=== PATIENT | male | born 1960 | race Hispanic/Latino ===

== ENCOUNTER 2017-05-15 18:51 | Emergency (ER) | payer MEDICARE ==
[~2017-05-15] VITALS: Ht 165.1 cm; Wt 65.4 kg
[~2017-05-15 18:51] MED LIST: ATROPINE SUL1 % OP; BL ADULT ASA81 MG OR; CARVEDILOL25 MG PO; CLONIDINE0.2 MG OR; GENTAMICIN0.3 % OP; HUMULI1 SC; HYDRALAZINE25 MG PO; HYDROCHLOROTH12.5 MG OR; LISINOPRIL20 MG OR; LISINOPRIL20 MG PO; LORTAB5 PO; METOPROL TAR25 MG PO; METOPROLOL50 MG OR; NIFEDIAC CC60 MG OR; NIFEDIPINE60 MG PO; NORVASC5 MG OR; NOVOLIN 70/30 SC; NOVOLOG MIX100 U/ML SC; PHOSLO667 MG PO; PRED FORTE1 % OP; RENO PO; RENVELA800 MG PO; SIMVASTATIN40 MG PO; SODIUM BICARBI650 MG OR; TAM75CAP OR; ZEMPLAR2 MCG OR; ZOCOR40 MG OR
[2017-05-15] MEDS ORDERED: DIOVAN320 MG PO (19:12)
[2017-05-15] MEDS ORDERED: RENVELA800 MG PO (19:12)
[2017-05-15] MEDS ORDERED: NIFEDIPINE60 MG PO (19:12)
[2017-05-15] MEDS ORDERED: SENSIPAR30 MG PO (19:14)
[2017-05-15] MEDS ORDERED: CLONIDINE0.1 MG PO (19:14)
[2017-05-15] MEDS ORDERED: METOPROL TAR25 MG PO (19:14)
[2017-05-15 19:25] LABS: HEMATOCRIT 33.3 % (39.0-50.0); HEMOGLOBIN 11.2 g/dl (14.0-18.0); IMMATURE GRANULOCYTES 0.4 % (0.0-1.0); MEAN CELL VOLUME 92.2 fL CALC (80.0-100.0); MEAN CORPUSCULAR HGB CONC 33.6 g/L CALC (32.0-36.0); NEUT# 9.72 thou/uL (1.82-7.42); RED BLOOD COUNT 3.61 mill/uL (4.70-6.10); RED CELL DISTRI WIDTH 11.9 % (11.5-15.5)
[2017-05-15 19:37] LABS: ALBUMIN 4.2 g/dL (3.2-5.0); BILIRUBIN, TOTAL 0.4 mg/dL (0.0-1.4); CALCIUM 9.3 mg/dL (8.4-10.2)
[2017-05-15 19:49] LABS: CREATININE 14.6 mg/dL (0.7-1.3); POTASSIUM 5.5 mmol/l (3.5-5.1)
[2017-05-15] MEDS ORDERED: FLEXERIL PO (21:12)
[2017-05-15] MEDS ORDERED: ULTRAM50 M1 PO (21:12)
[2017-05-15 22:35] VITALS: BP 177/79
== END 2017-05-15 22:16 | disposition home or self-care (01) ==
LOC: ED 18:51
PROVIDERS: Emergency Medicine
DX: S16.1XXA Strain of muscle, fascia and tendon at neck level, initial encounter (principal); M62.838 Other muscle spasm; R94.31 Abnormal electrocardiogram [ECG] [EKG]; M54.2 Cervicalgia; I12.0 Hypertensive chronic kidney disease with stage 5 chronic kidney disease or end stage renal disease; N18.6 End stage renal disease; Z99.2 Dependence on renal dialysis

== ENCOUNTER 2018-06-11 08:25 | Emergency (ER) | payer MEDICARE ==
[~2018-06-11] VITALS: Ht 165.1 cm; Wt 65.5 kg
[~2018-06-11 08:25] MED LIST changes: +CLONIDINE0.1 MG PO; +DIOVAN320 MG PO; +FLEXERIL PO; +SENSIPAR30 MG PO; +ULTRAM50 M1 PO
[2018-06-11 08:58] LABS: HEMATOCRIT 30.9 % (39.0-50.0); HEMOGLOBIN 9.8 g/dl (14.0-18.0); MEAN CELL VOLUME 97.2 fL CALC (80.0-100.0); MEAN CORPUSCULAR HGB 30.8 pG CALC (26.0-32.0); MEAN CORPUSCULAR HGB CONC 31.7 g/L CALC (32.0-36.0); NEUT# 6.38 thou/uL (1.82-7.42); RED BLOOD COUNT 3.18 mill/uL (4.70-6.10); RED CELL DISTRI WIDTH 13.6 % (11.5-15.5)
[2018-06-11] MEDS ORDERED: CARVEDILOL25 MG PO (09:03)
[2018-06-11] MEDS ORDERED: ATORVASTATIN CA40 MG PO (09:05)
[2018-06-11] MEDS ORDERED: ASPIRIN 81 LOW81 MG PO (09:07)
[2018-06-11] MEDS ORDERED: CLOPIDOGREL75 MG PO (09:09)
[2018-06-11 09:22] LABS: CREATININE 14.6 mg/dL (0.7-1.3); POTASSIUM 5.2 mmol/l (3.5-5.1)
[2018-06-11 09:29] VITALS: BP 144/68
== END 2018-06-11 09:29 | disposition short-term general hospital (02) ==
LOC: ED 08:25
PROVIDERS: Family Medicine
DX: R07.9 Chest pain, unspecified (principal); R94.31 Abnormal electrocardiogram [ECG] [EKG]; E11.22 Type 2 diabetes mellitus with diabetic chronic kidney disease; I12.0 Hypertensive chronic kidney disease with stage 5 chronic kidney disease or end stage renal disease; N18.6 End stage renal disease; Z99.2 Dependence on renal dialysis; Z95.5 Presence of coronary angioplasty implant and graft

== ENCOUNTER 2019-01-14 09:28 | Emergency (ER) | payer MEDICARE ==
[~2019-01-14] VITALS: Ht 165.1 cm; Wt 65.5 kg
[~2019-01-14 09:28] MED LIST changes: +ASPIRIN 81 LOW81 MG PO; +ATORVASTATIN CA40 MG PO; +CLOPIDOGREL75 MG PO
[2019-01-14] MEDS ORDERED: NIFEDIPINE ER90 MG PO (10:21)
[2019-01-14] MEDS ORDERED: MONTELUKAST SOD10 MG PO (10:23)
[2019-01-14] MEDS ORDERED: NEURONTIN300 MG PO (10:23)
[2019-01-14] MEDS ORDERED: CLONIDINE HCL0.2 MG PO (10:24)
[2019-01-14] MEDS ORDERED: LISINOPRIL40 MG PO (10:24)
[2019-01-14] MEDS ORDERED: BAYER ASPIRIN E81 MG PO (10:25)
[2019-01-14] MEDS ORDERED: MOTRIN400 MG PO (11:08)
[2019-01-14] MEDS ORDERED: MUPIROCIN2 % EX (11:13)
[2019-01-14 11:25] VITALS: BP 143/63
== END 2019-01-14 11:25 | disposition home or self-care (01) ==
LOC: ED 09:28
DX: S80.02XA Contusion of left knee, initial encounter (principal); E11.9 Type 2 diabetes mellitus without complications; I10 Essential (primary) hypertension; F17.210 Nicotine dependence, cigarettes, uncomplicated; W01.0XXA Fall on same level from slipping, tripping and stumbling without subsequent striking against object, initial encounter; Y92.009 Unspecified place in unspecified non-institutional (private) residence as the place of occurrence of the external cause

== ENCOUNTER 2019-01-17 01:33 | Emergency (ER) | payer MEDICARE ==
[~2019-01-17] VITALS: Ht 165.1 cm; Wt 65.4 kg
[~2019-01-17 01:33] MED LIST changes: +BAYER ASPIRIN E81 MG PO; +CLONIDINE HCL0.2 MG PO; +LISINOPRIL40 MG PO; +MONTELUKAST SOD10 MG PO; +MOTRIN400 MG PO; +MUPIROCIN2 % EX; +NEURONTIN300 MG PO; +NIFEDIPINE ER90 MG PO
[2019-01-17 02:17] LABS: HEMATOCRIT 30.1 % (39.0-50.0); HEMOGLOBIN 9.3 g/dl (14.0-18.0); IMMATURE GRANULOCYTES 0.4 % (0.0-5.0); MEAN CELL VOLUME 93.5 fL CALC (80.0-100.0); MEAN CORPUSCULAR HGB 28.9 pG CALC (26.0-32.0); MEAN CORPUSCULAR HGB CONC 30.9 g/L CALC (32.0-36.0); NEUT# 8.41 thou/uL (1.82-7.42); RED BLOOD COUNT 3.22 mill/uL (4.70-6.10); RED CELL DISTRI WIDTH 15.4 % (11.5-15.5)
[2019-01-17 02:56] LABS: ALBUMIN 4.6 g/dL (3.2-5.0); BILIRUBIN, TOTAL 0.6 mg/dL (0.0-1.4); TOTAL PROTEIN 8.4 g/dL (6.3-8.2)
[2019-01-17 03:23] LABS: CREATININE 12.5 mg/dL (0.7-1.3)
[2019-01-17 05:30] VITALS: BP 166/74
== END 2019-01-17 05:45 ==
LOC: ED 01:33
PROVIDERS: Emergency Medicine
DX: I12.0 Hypertensive chronic kidney disease with stage 5 chronic kidney disease or end stage renal disease (principal); J18.9 Pneumonia, unspecified organism; E11.22 Type 2 diabetes mellitus with diabetic chronic kidney disease; N18.6 End stage renal disease; F17.210 Nicotine dependence, cigarettes, uncomplicated; Z99.2 Dependence on renal dialysis

== ENCOUNTER 2021-07-15 16:47 | Emergency (ER) | payer MEDICARE ==
[~2021-07-15] VITALS: Ht 165.1 cm; Wt 65.0 kg
[2021-07-15 18:29] LABS: HEMOGLOBIN 10.9 g/dl (14.0-18.0); IMMATURE GRANULOCYTES 0.1 % (0.0-5.0); MEAN CORPUSCULAR HGB 32.1 pG CALC (26.0-32.0); MEAN CORPUSCULAR HGB CONC 32.1 g/dL CAL (32.0-36.0); NEUT# 7.34 thou/uL (1.82-7.42); RED BLOOD COUNT 3.4 mill/uL (4.70-6.10); RED CELL DISTRI WIDTH 12.8 % (11.5-15.5)
[2021-07-15 18:34] LABS: ALBUMIN 4.1 g/dL (3.2-5.0); BILIRUBIN, TOTAL 0.5 mg/dL (0.0-1.4); TOTAL PROTEIN 8.2 g/dL (6.3-8.2)
[2021-07-15 18:36] LABS: CREATININE 5.9 mg/dL (0.7-1.3)
== END 2021-07-15 22:27 | disposition home or self-care (01) ==
LOC: ED 16:47
PROVIDERS: Emergency Medicine
DX: R07.9 Chest pain, unspecified (principal); I10 Essential (primary) hypertension; E11.9 Type 2 diabetes mellitus without complications; I25.10 Atherosclerotic heart disease of native coronary artery without angina pectoris; E78.5 Hyperlipidemia, unspecified; F17.200 Nicotine dependence, unspecified, uncomplicated; Z95.5 Presence of coronary angioplasty implant and graft

== ENCOUNTER 2022-03-28 23:58 | Emergency (ER) | payer MEDICARE ==
[~2022-03-28] VITALS: Ht 165.1 cm; Wt 55.0 kg
[2022-03-29] VITALS (7 sets, daily range): BP systolic 145–154; BP diastolic 49–59
[2022-03-29 00:29] LABS: HEMATOCRIT 30.6 % (39.0-50.0); HEMOGLOBIN 9.6 g/dl (14.0-18.0); IMMATURE GRANULOCYTES 0.1 % (0.0-5.0); MEAN CELL VOLUME 101.3 fL CALC (80.0-100.0); MEAN CORPUSCULAR HGB 31.8 pG CALC (26.0-32.0); MEAN CORPUSCULAR HGB CONC 31.4 g/dL CAL (32.0-36.0); NEUT# 7.23 thou/uL (1.82-7.42); RED BLOOD COUNT 3.02 mill/uL (4.70-6.10); RED CELL DISTRI WIDTH 13.1 % (11.5-15.5)
[2022-03-29 00:48] LABS: BILIRUBIN, TOTAL 0.4 mg/dL (0.0-1.4)
[2022-03-29 01:02] LABS: POTASSIUM 5.3 mmol/l (3.5-5.1)
== END 2022-03-29 02:42 ==
LOC: ED 23:58
PROVIDERS: Family Medicine
DX: I12.0 Hypertensive chronic kidney disease with stage 5 chronic kidney disease or end stage renal disease (principal); E11.22 Type 2 diabetes mellitus with diabetic chronic kidney disease; N18.6 End stage renal disease; E87.5 Hyperkalemia; F17.200 Nicotine dependence, unspecified, uncomplicated; Z99.2 Dependence on renal dialysis; Z20.822 Contact with and (suspected) exposure to COVID-19

== ENCOUNTER 2022-04-29 16:38 | Emergency (ER) | payer MEDICARE ==
[~2022-04-29] VITALS: Ht 165.1 cm; Wt 57.0 kg
[2022-04-29] VITALS (21 sets, daily range): BP systolic 154–180; BP diastolic 55–77
[2022-04-29] MEDS ORDERED: NAPROXEN500 MG PO (18:10)
== END 2022-04-29 18:35 | disposition home or self-care (01) ==
LOC: ED 16:38
DX: M17.12 Unilateral primary osteoarthritis, left knee (principal); I10 Essential (primary) hypertension; E11.9 Type 2 diabetes mellitus without complications; F17.210 Nicotine dependence, cigarettes, uncomplicated; Z95.5 Presence of coronary angioplasty implant and graft

== ENCOUNTER 2024-01-01 01:14 | Emergency (ER) | payer MEDICARE ==
[~2024-01-01] VITALS: Ht 165.1 cm; Wt 58.5 kg
[2024-01-01] VITALS (35 sets, daily range): BP systolic 167–198; BP diastolic 79–152
[~2024-01-01 01:14] MED LIST changes: +NAPROXEN500 MG PO
[2024-01-01] MEDS ORDERED: IPRATROPIUM-Albuterol 0.5MG-2.5MG/3 ML NEB ONE ×2 (01:30→03:55)
[2024-01-01 01:57] LABS: BASO% 0.2 % (0-3); EOS% 8.1 % (0-8); HEMATOCRIT 37.1 % (39.0-50.0); HEMOGLOBIN 11.7 g/dl (14.0-18.0); IMMATURE GRANULOCYTES 0.3 % (0.0-5.0); LYMPH% 6.6 % (15-41); MEAN CELL VOLUME 93.9 fL CALC (80.0-100.0); MEAN CORPUSCULAR HGB 29.6 pG CALC (26.0-32.0); MEAN CORPUSCULAR HGB CONC 31.5 g/dL CAL (32.0-36.0); MONO% 9.5 % (2-13); NEUT# 7.56 thou/uL (1.82-7.42); NEUT% 75.3 % (42-76); RED BLOOD COUNT 3.95 mill/uL (4.70-6.10); RED CELL DISTRI WIDTH 12.9 % (11.5-15.5)
[2024-01-01 02:16] LABS: ALBUMIN 4.1 g/dL (3.2-5.0); TOTAL PROTEIN 8.4 g/dL (6.3-8.2)
[2024-01-01 02:41] LABS: BILIRUBIN, TOTAL 0.7 mg/dL (0.2-1.3); CREATININE 9.1 mg/dL (0.7-1.3)
[2024-01-01] MEDS ORDERED: VANCOMYCIN HCL 1 GM in SODIUM CHLORIDE 0.9% 250 ML IV ONE (03:00)
[2024-01-01] MEDS ORDERED: DOXYCYCLINE HYCLATE 100 MG in SODIUM CHLORIDE 0.9% 100 ML IV ONE (03:15)
[2024-01-01] MEDS ORDERED: methylPREDNISolone Sod Succ 40 MG/ML SDV IV ONE (03:15)
[2024-01-01] MEDS ORDERED: NITROGLYCERIN 2% OINT UD 1 GM/PAK TD ONE (03:55)
[2024-01-01] MEDS ORDERED: ENALAPRILAT 1.25 MG/ML 1ML IV ONE (05:15)
== END 2024-01-01 10:04 ==
LOC: ED 01:14
PROVIDERS: Emergency Medicine
DX: A41.9 Sepsis, unspecified organism (principal); R65.20 Severe sepsis without septic shock; J96.20 Acute and chronic respiratory failure, unspecified whether with hypoxia or hypercapnia; J18.9 Pneumonia, unspecified organism; E87.70 Fluid overload, unspecified; I12.0 Hypertensive chronic kidney disease with stage 5 chronic kidney disease or end stage renal disease; E11.22 Type 2 diabetes mellitus with diabetic chronic kidney disease; N18.6 End stage renal disease; F17.200 Nicotine dependence, unspecified, uncomplicated; Z99.2 Dependence on renal dialysis; Z95.5 Presence of coronary angioplasty implant and graft; Z20.822 Contact with and (suspected) exposure to COVID-19